=== PATIENT | male | born 2000 | race Caucasian/White ===

== ENCOUNTER 2019-11-23 16:19 | Emergency (ER) | payer MEDICAID ==
[~2019-11-23] VITALS: Ht 172.7 cm; Wt 61.7 kg
[~2019-11-23 16:19] MED LIST: MOTRIN400 MG PO
== END 2019-11-23 17:15 | disposition home or self-care (01) ==
LOC: ED 16:19
DX: S81.011D Laceration without foreign body, right knee, subsequent encounter (principal); Z48.00 Encounter for change or removal of nonsurgical wound dressing; X58.XXXD Exposure to other specified factors, subsequent encounter

== ENCOUNTER 2021-04-06 11:57 | Emergency (ER) | payer SELFPAY ==
[~2021-04-06] VITALS: Ht 172.7 cm; Wt 63.5 kg
[2021-04-06] MEDS ORDERED: TYLENOL325 M1 PO ×2 (13:14→13:57)
[2021-04-06] MEDS ORDERED: NAPROXEN250 MG PO ×2 (13:14→13:57)
== END 2021-04-06 14:02 | disposition home or self-care (01) ==
LOC: ED 11:57
DX: S82.831A Other fracture of upper and lower end of right fibula, initial encounter for closed fracture (principal); S06.0X9A Concussion with loss of consciousness of unspecified duration, initial encounter; S00.03XA Contusion of scalp, initial encounter; S10.93XA Contusion of unspecified part of neck, initial encounter; S20.222A Contusion of left back wall of thorax, initial encounter; S20.212A Contusion of left front wall of thorax, initial encounter; M25.522 Pain in left elbow; Y08.89XA Assault by other specified means, initial encounter; Y93.89 Activity, other specified; Y92.89 Other specified places as the place of occurrence of the external cause; Y99.8 Other external cause status

== ENCOUNTER → 2021-04-18 | Outpatient (CLI) | payer SELFPAY ==
[~2021-04-18] MED LIST changes: +NAPROXEN250 MG PO; +TYLENOL325 M1 PO
== END | disposition home or self-care (01) ==
LOC: LAB 14:50
PROVIDERS: ATTEND Internal Medicine
DX: Z20.822 Contact with and (suspected) exposure to COVID-19 (principal)

== ENCOUNTER 2022-08-20 12:06 | Emergency (ER) | payer SELFPAY ==
[~2022-08-20] VITALS: Ht 172.7 cm; Wt 67.1 kg
== END 2022-08-20 18:39 | disposition left against medical advice (07) ==
LOC: ED 12:06
DX: K08.89 Other specified disorders of teeth and supporting structures (principal); Z53.21 Procedure and treatment not carried out due to patient leaving prior to being seen by health care provider

== ENCOUNTER 2023-09-27 14:58 | Emergency (ER) | payer SELFPAY ==
[~2023-09-27] VITALS: Ht 177.8 cm; Wt 61.2 kg
[2023-09-27 15:51] LABS: BASO % 0.8 % (0.0-1.0); EOS % 0.2 % (1.0-4.0); HEMATOCRIT 47.5 % (42.0-52.0); LYMPH # 1.1 10*3/uL (1.3-4.4); LYMPH % 21.7 % (27.0-41.0); MEAN CELL VOLUME 88.8 fl (80.0-94.0); MEAN CORPUSCULAR HGB 30.3 pg (27.0-31.0); MEAN CORPUSCULAR HGB CONC 34.1 g/dl (33.0-37.0); MEAN PLATELET VOLUME 9.5 fl (9.6-12.3); MONO % 19.1 % (3.0-9.0); NEUT # 2.9 10*3/uL (2.3-7.9); PLATELET COUNT AUTOMATED 211 10*3/uL (130-400); RED BLOOD COUNT 5.35 10*6/uL (4.50-5.90); RED CELL DISTRI WIDTH 12.6 % (0-14.5)
[2023-09-27] MEDS ORDERED: ZITHROMAX250 MG PO (16:04)
[2023-09-27 16:13] LABS: ALKALINE PHOSPHATASE 85 U/L (46-116); BUN 8 mg/dl (9-23); CHLORIDE 103 mmol/L (98-107); POTASSIUM 3.8 mmol/L (3.4-5.1); SGPT/ALT 17 U/L (5-49)
== END 2023-09-27 16:11 | disposition home or self-care (01) ==
LOC: ED 14:58
PROVIDERS: Nurse Practitioner Family
DX: J02.9 Acute pharyngitis, unspecified (principal); Z98.890 Other specified postprocedural states; F17.210 Nicotine dependence, cigarettes, uncomplicated

== ENCOUNTER 2025-04-12 10:56 | Emergency (ER) | payer OTHER ==
[~2025-04-12] VITALS: Ht 172.7 cm; Wt 61.2 kg
[~2025-04-12 10:56] MED LIST changes: +ZITHROMAX250 MG PO
[2025-04-12] MEDS ORDERED: CLEOCIN HCL150 MG PO (11:33)
== END 2025-04-12 12:27 | disposition home or self-care (01) ==
LOC: ED 10:56
DX: K04.7 Periapical abscess without sinus (principal); Z79.899 Other long term (current) drug therapy

== ENCOUNTER 2025-07-22 12:31 | Emergency (ER) | payer OTHER ==
[~2025-07-22 12:31] MED LIST changes: +CLEOCIN HCL150 MG PO
[2025-07-22] MEDS ORDERED: Tdap Vaccine 0.5 ML SYR (Adult Vaccine) IM ONE (12:45)
== END 2025-07-22 14:17 | disposition home or self-care (01) ==
LOC: ED 12:31
DX: S61.213A Laceration without foreign body of left middle finger without damage to nail, initial encounter (principal); R55 Syncope and collapse; Z98.890 Other specified postprocedural states; X58.XXXA Exposure to other specified factors, initial encounter; Y93.89 Activity, other specified; Y92.89 Other specified places as the place of occurrence of the external cause; Y99.8 Other external cause status